=== PATIENT | male | born 1985 | race African-American/Black ===

== ENCOUNTER 2017-07-31 18:20 | Emergency (ER) | payer OTHER ==
[~2017-07-31] VITALS: Ht 188 cm; Wt 100.0 kg
[2017-07-31] MEDS ORDERED: ACETAMINOPHEN 500 MG TABLET PO ONE (19:30)
[2017-07-31] MEDS ORDERED: IBUPROFEN 800 MG TABLET PO ONE (19:30)
[2017-07-31 19:31] LABS: INFLUENZA TYPE B NEGATIVE FOR TYPE B (NEGATIVE)
[2017-07-31 20:40] VITALS: BP 155/74
== END 2017-07-31 20:42 | disposition home or self-care (01) ==
LOC: EMS 18:22
DX: R11.2 Nausea with vomiting, unspecified (principal); R10.13 Epigastric pain; R51 Headache; R03.0 Elevated blood-pressure reading, without diagnosis of hypertension; F17.210 Nicotine dependence, cigarettes, uncomplicated
CPT/HCPCS: 71020; 87804; 99285

== ENCOUNTER 2018-06-26 12:33 | Emergency (ER) | payer OTHER ==
[~2018-06-26] VITALS: Ht 185.4 cm; Wt 102.0 kg
[2018-06-26] MEDS ORDERED: CYCLOBENZAPRINE HCL 10 MG TABLET PO ONE (13:15)
[2018-06-26] MEDS ORDERED: IBUPROFEN 600 MG TABLET PO ONE (13:15)
[2018-06-26 13:19] LABS: BASOPHILS % (AUTO) 0.4 % (0.0-2.0); EOSINOPHILS % (AUTO) 0.7 % (1.0-6.0); HEMATOCRIT 39.7 % (41-53); HEMOGLOBIN 13.6 g/dL (13.5-17.5); LYMPHOCYTES # (AUTO) 1.5 K/uL (1.0-4.8); LYMPHOCYTES % (AUTO) 23.9 % (22.0-44.0); MEAN CORPUSCULAR HEMOGLOBIN 30.9 pg (26.0-34.0); MEAN CORPUSCULAR HGB CONC 34.3 G/dL (31.0-37.0); MEAN CORPUSCULAR VOLUME 90 fL (80-100); MONOCYTES # (AUTO) 0.3 K/uL (0.1-1.0); MONOCYTES % (AUTO) 5.5 % (2.0-9.0); NEUTROPHILS # (AUTO) 4.3 K/uL (1.8-7.7); NEUTROPHILS % (AUTO) 69.5 % (40.0-70.0); PLATELET COUNT (AUTO) 219 K/uL (150-450); RED CELL DISTRIBUTION WIDTH 12.3 % (11.5-14.5)
[2018-06-26 13:20] LABS: APPEARANCE,URINE CLEAR (CLEAR); BILIRUBIN,URINE NEGATIVE (NEGATIVE); GLUCOSE, URINE (UA) NEGATIVE (NEGATIVE); KETONES,URINE NEGATIVE (NEGATIVE); LEUKOCYTE ESTERASE ,URINE NEGATIVE (NEGATIVE); NITRATE,URINE NEGATIVE (NEGATIVE); OCCULT BLOOD,URINE NEGATIVE (NEGATIVE); UROBILINOGEN,URINE 0.2 mg/dL (<=1.0)
[2018-06-26 13:22] LABS: PROTEIN,URINE NEGATIVE (NEGATIVE)
[2018-06-26 13:28] LABS: ANION GAP 3 mmol/L (8-16); CALCIUM, TOTAL 8.6 mg/dL (8.8-10.5); CARBON DIOXIDE 36 mmol/L (22-29); CHLORIDE 103 mmol/L (98-107); CREATININE 0.93 mg/dL (0.60-1.30); GLOMERULAR FILTR. RATE CALC > 60 mL/min (>60); GLUCOSE,RANDOM 96 mg/dL (70-110); POTASSIUM 3.1 mmol/L (3.5-5.1); SODIUM SERUM 142 mmol/L (136-145); UREA NITROGEN, BLOOD 6 mg/dL (7-18)
[2018-06-26 13:33] LABS: ALANINE AMINOTRANSFERASE 28 U/L (12-78); ALBUMIN 3.7 g/dL (3.4-5.0); ALKALINE PHOSPHATASE 78 U/L (46-116); ASPARTATE AMINOTRANSFERASE 21 U/L (15-37); BILIRUBIN,TOTAL 0.4 mg/dL (0.1-1.0); LIPASE 194 U/L (73-393)
[2018-06-26] MEDS ORDERED: HYDROCODONE/ACETAMINOPHEN 5-325 MG TABLET PO ONE (14:15)
[2018-06-26 14:45] VITALS: BP 166/96
== END 2018-06-26 15:26 | disposition home or self-care (01) ==
LOC: EMS 12:34
DX: D17.1 Benign lipomatous neoplasm of skin and subcutaneous tissue of trunk (principal); M54.9 Dorsalgia, unspecified; I10 Essential (primary) hypertension; F17.210 Nicotine dependence, cigarettes, uncomplicated
CPT/HCPCS: 74176; 99406

== ENCOUNTER 2021-04-12 14:20 | Emergency (ER) | payer OTHER ==
[~2021-04-12] VITALS: Ht 188 cm; Wt 104.5 kg
[2021-04-12 14:34] VITALS: BP 161/76
== END 2021-04-12 15:51 | disposition left against medical advice (07) ==
LOC: EMS 14:22
DX: R10.9 Unspecified abdominal pain (principal); Z53.21 Procedure and treatment not carried out due to patient leaving prior to being seen by health care provider

== ENCOUNTER → 2024-04-27 | Emergency (ER) | payer OTHER ==
[~2024-04-27] VITALS: Ht 188 cm; Wt 104.5 kg
[~2024-04-27] MED LIST: AMLO-257 PO; AMLO10TA55 PO; CIPR500T10 PO; LABE200T56 PO; LOSA-382 PO; METH-812 PO
[2024-04-27] MEDS: LOSARTAN POTASSIUM 50 MG TABLET PO ONE (12:31)
[2024-04-27] MEDS: ACETAMINOPHEN 325 MG TABLET PO ONE (12:32)
[2024-04-27] MEDS: AmLODIPine BESYLATE 10 MG TABLET PO ONE (12:32)
[2024-04-27] MEDS: LIDOCAINE 1% 10 ML VIAL ID ONE (13:42)
[2024-04-27] MEDS: IBUPROFEN 600 MG TABLET PO ONE (14:56)
[2024-04-27 15:05] VITALS: BP 155/89; PULSE 89; RESP 18; TEMP 97.8; O2SAT 96
== END | disposition home or self-care (01) ==
LOC: EMS 11:42
DX: S01.312A Laceration without foreign body of left ear, initial encounter (principal); I10 Essential (primary) hypertension; F17.210 Nicotine dependence, cigarettes, uncomplicated; V28.01XA Electric (assisted) bicycle driver injured in noncollision transport accident in nontraffic accident, initial encounter; Y93.89 Activity, other specified; Y92.89 Other specified places as the place of occurrence of the external cause; Y99.8 Other external cause status
CPT/HCPCS: 99284; 70450; 80176; 36415; 72125; 12011; J3490